=== PATIENT | female | born 1945 | race Caucasian/White ===

== ENCOUNTER 2024-04-20 23:25 | Observation (INO) | payer OTHER, SELFPAY ==
[2024-04-20 15:07] VITALS: BP 130/99
[2024-04-20 15:46] LABS: % Basophils 0.5 % (0-2); % Eosinophils 0.4 % (0-6); % Immature Granulocytes 0.6 % (0-0.5); % Lymphocytes 23.8 % (20.5-51.1); % Monocytes 12.1 % (1.7-9.3); % Neutrophils 62.6 % (42.2-75.2); Absolute Immature Granulocytes 0.1 10^3/uL (0-0.05); Absolute Lymphocytes 1.9 10^3/uL (1.2-3.4); Absolute Neutrophils 4.9 10^3/uL (1.4-6.5); Hematocrit 37.9 % (37.0-47.0); Hemoglobin 12.8 g/dL (12.0-16.0); Mean Corp Hgb Conc. 33.8 g/dL (33.0-37.0); Mean Corpuscular Hgb 31.6 pg (27.0-31.0); Mean Corpuscular Volume 93.6 fL (81.0-99.0); Mean Platelet Volume 9.2 fL (7.4-10.4); Nucleated Red Blood Cells % 0 %; Platelet Count 207 10^3/uL (130-400); Red Blood Cell Count 4.05 10^6/uL (4.20-5.40); Red Cell Dist. Width 12.8 % (11.5-14.5); White Blood Cell Count 7.8 10^3/uL (4.8-10.8)
[2024-04-20 16:04] LABS: ALT (SGPT) 23 U/L (0-35); AST (SGOT) 29 U/L (14-36); Albumin 4.5 g/dl (3.5-5.0); Alkaline Phosphatase 72 U/L (38-126); Blood Urea Nitrogen 31 mg/dl (7-17); Calcium 9.8 mg/dl (8.4-10.2); Carbon Dioxide 26 mmol/L (22-30); Chloride 96 mmol/L (98-107); Glucose 82 mg/dl (70-99); Potassium 4.5 mmol/L (3.5-5.1); Sodium 133 mmol/L (135-145); Total Bilirubin 0.4 mg/dl (0.2-1.3); Total Protein 7.2 g/dl (6.3-8.2); eGFR > 60.00
[2024-04-20 16:54] VITALS: BP 147/98
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
[2024-04-20 18:52] VITALS: BP 169/97
[2024-04-20 20:39] VITALS: BP 128/93
--- NOTE | 2024-04-20 22:10 | HPS.HSE ---
Addendum entered and electronically signed by Celia Valdes DO 04/21/24 00:13:
The patient is seen and examined. I have discussed the patient with Cynthia, and agree with history and physical, assessment and plan of care as per below. Per discussion with the ED provider, the patient has moderate dementia, lives alone, her
nephew is her POA, and presents after her patient advocate did a home check and noticed multiple pills missing from her blister pack-according to SW, she reports pt may have taken xtra 3 losartan, 3 crestor, 3 effexor, 3 metformin. Medical work-up
is unremarkable. She is medically cleared; POA states pt has been steadily declining, telepsych said pt does not have capacity to make decisions at this time, and admit is for case management and possible placement options vs consistent home nursing
care.
Crisis team consultation : 'Reason for Incapacitation:
The PATIENT IS NOT CAPABLE of understanding the nature of their illness. , The PATIENT DOES NOT UNDERSTAND the need for treatment and the consequences of neglecting or refusing treatment recommendations. , The PATIENT DOES NOT UNDERSTAND the risks
and benefits of treatment recommendations.
Capacity Evaluation Details: Patient does not have capacity'
VSS/AF
CV RRR, no m/r/g
Lungs CTA b/l
Neuro no focal deficits
Assessment and plan of care as per below:
Monitor telemetry observation overnight, EKG was normal, hemodynamically stable, AF
CM consultation to discuss placement options vs home w consistent home nursing care.
Original Note:
Family Physician
<DENNISE Kwan - Last Filed: 04/20/24 23:08>
-
Family Physician: PHYSICIAN PRIVATE
Chief Complaint
<DENNISE Kwan - Last Filed: 04/20/24 23:08>
-
accidental overdose
History of Present Illness
Patient is a 78-year-old female with past medical history significant for hypertension, hypothyroidism, NIDDM and depression who presented to [facility] for evaluation potential accidental overdose. Patient nurse advocate present in room and
helped with HPI as well as ROYCE and andrey Hopkins via phone call. Patient resides at home alone with home health aides for 4 hours multiple days a week, nurse advocate with intermittent visits during the week. Patient recently provided medications
via blister packs to assist in daily dosing. Nurse advocate noticed at visit today that patient had multiple medications with additional missing medications, patient adamantly denies taking extra medication. It was noted that extra losartan,
metformin and extra Effexor were all missing and multiple tablets of all of them. Patient denies any symptoms fevers, chills, cough, chest pain, shortness of breath, nausea, vomiting, constipation, diarrhea or urinary symptoms.
Medical History
<DENNISE Kwan - Last Filed: 04/20/24 23:08>
Past Medical History
Past Medical History: Reports Other
Additional Past Medical History:
hypertension
hypothyroidism
NIDDM
depression
Past Surgical History: Reports None
Social History
Unable to obtain full social history at this time due to: Dementia (cognitive decline, no dementia diagnosis at this time, Crisis assessment 'patient has short term cognitive impairment and does not seem to have capacity based on Komal’s
criteria.')
Living: Alone (home health aides for 4 hours a few days a week)
Employment: Retired
Allergies / Home Medications
Allergies reflects when Allergies were last updated in [facility].
Home Medications with original date entered in [facility]
Allergy/Medication List:
Allergies
Allergy/AdvReac Type Severity Reaction Status Date / Time
prochlorperazine Allergy Unknown Verified 04/20/24 15:00
[From Compazine]
Home Medications
fluticasone propionate 50 mcg/actuation nasal spray,suspension 1 spray intranasal DAILYPRN PRN congestion 04/20/24
levothyroxine 100 mcg tablet 100 mcg PO DAILY 04/20/24
losartan 50 mg tablet 50 mg PO DAILY 04/20/24
metformin 500 mg tablet 500 mg PO BID 04/20/24
rosuvastatin 10 mg tablet 10 mg PO DAILY 04/20/24
venlafaxine 150 mg capsule,extended release 24 hr 150 mg PO DAILY 04/20/24
<Celia Valdes DO - Last Filed: 04/20/24 23:54>
Family History
Family History: Not pertinent
Review of Systems
<DENNISE Kwan - Last Filed: 04/20/24 23:08>
-
Unable to obtain full review of systems at this time due to: Dementia (cognitive decline, no dementia diagnosis at this time, Crisis assessment 'patient has short term cognitive impairment and does not seem to have capacity based on Komal’s
criteria.')
History Source: Patient
Constitutional: Reports No Symptoms
EENT: Reports No Symptoms
Respiratory: Reports No Symptoms
Cardiac: Reports No Symptoms
Abdomen/GI: Reports No Symptoms
: Reports No Symptoms
Musculoskeletal: Reports No Symptoms
Skin: Reports No Symptoms
Neurological: Reports No Symptoms
Endocrine: Reports No Symptoms
Hematologic/Lymphatic: Reports No Symptoms
Psych: Reports No Symptoms
Physical Exam
<DENNISE Kwan - Last Filed: 04/20/24 23:08>
Vital Signs
Vital Signs
Temp Pulse Resp BP Pulse Ox
98.5 F 120 20 128/93 94
04/20/24 15:07 04/20/24 20:39 04/20/24 18:52 04/20/24 20:39 04/20/24 20:39
Physical Exam
General: Well Developed, Well Nourished and No Apparent Distress
HEENT: NormoCephalic, Moist mucous membranes and Atraumatic
Respiratory: Clear and Non Labored Respirations
Cardiac: S1/S2, Regular Rhythm and Murmur; No Rub or Gallop
Breast: Deferred by me
GI: Soft, Non Tender, Non Distended and Normal Bowel Sounds; No Organomegaly
Rectal: Deferred by Provider
Genito-urinary: Deferred by me
Musculoskeletal: No Clubbing, No Cyanosis and No Edema
Skin: No Rash
Neuro: Awake, Alert and Nonfocal/grossly intact
Psych: Agitated
Laboratory Results
<DENNISE Kwan - Last Filed: 04/20/24 23:08>
-
04/20/24 15:28
04/20/24 15:28
Laboratory Results
Total Bilirubin 0.4 mg/dl (0.2-1.3) 04/20/24 15:28
AST 29 U/L (14-36) 04/20/24 15:28
ALT 23 U/L (0-35) 04/20/24 15:28
Alkaline Phosphatase 72 U/L (38-126) 04/20/24 15:28
Data Reviewed
<DENNISE Kwan - Last Filed: 04/20/24 23:08>
-
Medical Tests (Nuc Med, Echo, EKG etc): Report Reviewed by me (EKG: NORMAL SINUS RHYTHM)
Lab Data: Labs Reviewed by me
Impression/Plan
<DENNISE Kwan - Last Filed: 04/20/24 23:08>
-
IMPRESSION/PLAN:
#accidental overdose
reported that multiple doses of blister packs for Effexor, metformin and losartan broken with no med today
- admit to med/sure for observation
- consult case management for discharge planning
#hypertension
- continue losartan
#hypothyroidism
- continue levothyroxine
#NIDDM
- continue metformin
#depression
- continue venlafaxine
Code Status: DNR
DVT Prophylaxis: Lovenox Sq
[2024-04-20 23:13] VITALS: BP 173/104
[2024-04-20 23:14] VITALS: BMI 24.6
[2024-04-20 23:26] LABS: Acetaminophen < 10 ug/ml (10-30); Salicylate < 1.0 mg/dl (2.0-20.0)
[2024-04-21] VITALS (11 sets, daily range): BP systolic 106–160; BP diastolic 62–106; BMI 24.8
[2024-04-21] MEDS: NSS 1000 IV (02:05)
[2024-04-21 02:18] LABS: Urine Albumin Negative (Neg - Trace); Urine Bilirubin Negative (Negative); Urine Character Clear (Clear); Urine Color Straw; Urine Glucose Negative (Negative); Urine Ketone Negative (Negative); Urine Leukocyte 1+ (Negative); Urine Nitrite Negative (Negative); Urine Occult Blood Negative (Negative); Urine Specific Gravity 1.005 (<1.030); Urine Urobilinogen Negative (Neg - 1+); Urine pH 6.5 (5.0-9.0)
[2024-04-21 02:27] LABS: Urine Urothelial Cell 21-25 /LPF (FEW)
[2024-04-21 02:28] LABS: Urine Bacteria Few (Negative); Urine Red Blood Cell 0-2 /HPF (0-2)
[2024-04-21 02:32] LABS: Amphetamines Negative (Negative); Barbiturates Negative (Negative); Benzodiazepines Negative (Negative); Buprenorphine Negative (Negative); Cocaine Negative (Negative); Marijuana Negative (Negative); Methadone Negative (Negative); Methamphetamines Negative (Negative); Opiates Negative (Negative); Phencyclidine Negative (Negative); Tricyclic Antidepressants Negative (Negative)
[2024-04-21 06:42] LABS: Blood Urea Nitrogen 22 mg/dl (7-17); Calcium 9.1 mg/dl (8.4-10.2); Carbon Dioxide 25 mmol/L (22-30); Chloride 101 mmol/L (98-107); Estimated Creatinine Clearance 51 ml/min; Glucose 92 mg/dl (70-99); Potassium 4.4 mmol/L (3.5-5.1); Sodium 135 mmol/L (135-145); eGFR > 60.00
[2024-04-21 07:06] LABS: TSH 1.93 uIU/ml (0.47-4.68)
[2024-04-21] MEDS: SYNTHROID 100 MCG PO (07:18)
--- NOTE | 2024-04-21 08:23 | W.PN.HOSP.TC ---
Today's Communication/Plan
-
d/c planning
Assessment / Plan
Assessment / Plan
#Accidental overdose
- reported that multiple doses of blister packs for Effexor, metformin and losartan broken with no med today
- Patient herself denies of overdosing on anything but crisis staff assessment shows that patient does not have decision making capacity
- admit to med/surge for observation
- consult case management for discharge planning
#Essential hypertension
- continue losartan
#hypothyroidism
- continue levothyroxine
#NIDDM
- continue metformin
#depression
- continue venlafaxine
Code Status: DNR
DVT Prophylaxis: Lovenox Sq
Patient is a flight risk in my opinion. Patient requesting to be discharged home.
Anticipated Discharge: Today
Subjective/Interval History
-
Date of Service: April 21, 2024
resting comfortably in bed
no issues overnight
Objective Data
-
Labs:
Laboratory Results
04/21/24
06:08
Sodium 135
Potassium 4.4
Chloride 101
Carbon Dioxide 25
BUN 22 H
Creatinine 0.7
Glucose 92
Calcium 9.1
Vital Signs:
Vital Signs
Temp Pulse Resp BP Pulse Ox
98.3 F 92 17 153/101 96
04/21/24 07:17 04/21/24 07:17 04/21/24 07:17 04/21/24 06:00 04/21/24 07:27
Review of Systems
-
Respiratory: Reports No Symptoms
Cardiac: Reports No Symptoms
Abdomen/GI: Reports No Symptoms
Physical Exam
-
General: Comfortable
HEENT: Negative Oxygen
Neuro: Awake, Alert and No Motor Deficits
[2024-04-21 09:14] LABS: Glucose - Point of Care 90 mg/dl (70-99)
[2024-04-21] MEDS: COZAAR 50 MG PO (10:24)
[2024-04-21] MEDS: GLUCOPHAGE 500 MG PO ×2 (10:24→21:32)
[2024-04-21] MEDS: EFFEXOR XR 150 MG PO (10:25)
[2024-04-21] MEDS: CRESTOR 10 MG PO (10:25)
--- NOTE | 2024-04-21 12:14 | CM ---
Addendum entered by Elysia Cervantes 04/21/24 14:40:
Received an email from Glenn/ROYCE Landaverde giving permission to, CM may speak with Mary Jo Fishman, patient's Advocate; and patient's Brother, Dina Landaverde
Addendum entered by Elysia Cervantes 04/21/24 13:27:
Per Attending, patient cannot go home without supervision and assistance in the home; patient is unable to make her own decisions
CM spoke with Glenn/Dina CRANE via phone #[phone] to discuss AL w/ memory unit; patient's brother plans to look for a facility
Glenn requested that CM Email Case Management contact information to [email or web address]
Original Note:
Initial assessment and Case Management Consult completed
RANGEL form explained; form signed @ 1210
NO Family Physician
Pharmacy verified: [facility] @ [address]
Lives alone in a rancher w/ basement; no steps to enter; does not go down to the basement; bed and bath on 1st floor; bath has tub w/ shower and grab bar
Reported she is independent with ambulation and ADLs; not currently working; drives
NO DME
NO SNF
Friend or Brother will transport home
Agreed to speak with [facility] Counselor to obtain outpatient therapy information
Plan: Discharge to home when stable
--- NOTE | 2024-04-21 14:01 | EDRN ---
Patient taken to room 412-1 in a wheelchair on the monitor by deburr technician.
--- NOTE | 2024-04-21 14:41 | PTCARENOTE ---
Receive dpt from ER via WC, accompanied by E PCT. Pt AAO x3, confused conversation at times; occ needs direction with activity. HOPKINS well, no c/o weakness/dizziness; able to transfer self to bed. VSS. On room air- pulse ox 96%, no SOB noted. Abd
soft, rounded, eating regular diet. Voided in BR upon arrival to room. Currently resting in bed, no c/o. Will continue to monitor.
--- NOTE | 2024-04-21 16:43 | PTCARENOTE ---
Pt resting comfortably since arrival on unit, no c/o. VSS. Will continue to monitor.
[2024-04-21] MEDS: LOVENOX 40 MG SC (17:58)
[2024-04-21 21:17] LABS: Glucose - Point of Care 166 mg/dl (70-99)
[2024-04-21] MEDS: MELATONIN PO (21:32)
[2024-04-21] MEDS: MELATONIN 5 MG PO (21:41)
[2024-04-22] VITALS (7 sets, daily range): BP systolic 109–138; BP diastolic 70–89
--- NOTE | 2024-04-22 06:05 | PTCARENOTE ---
Pt aaox3 able to make her needs known,denies pain or any other discomfort. Pt denies of any problems/discomfort.Pt denies of any suicidal thoughts or any other medications with her at this time.Plan of care continued.Call dee in reach.
[2024-04-22] MEDS: COZAAR 50 MG PO (08:57)
[2024-04-22] MEDS: EFFEXOR XR 150 MG PO (08:57)
[2024-04-22] MEDS: CRESTOR 10 MG PO (08:57)
[2024-04-22] MEDS: SYNTHROID 100 MCG PO (08:58)
[2024-04-22] MEDS: GLUCOPHAGE 500 MG PO ×2 (08:58→20:59)
--- NOTE | 2024-04-22 13:54 | W.PN.HOSP.TC ---
Today's Communication/Plan
-
medically stable for discharge
needs safe discharge plan
Assessment / Plan
Assessment / Plan
#Accidental overdose
- reported that multiple doses of blister packs for Effexor, metformin and losartan broken with no med today
- Patient herself denies of overdosing on anything but crisis staff assessment shows that patient does not have decision making capacity
- admit to med/surge for observation
- consult case management for discharge planning
#Essential hypertension
- continue losartan
#hypothyroidism
- continue levothyroxine
#NIDDM
- continue metformin
#depression
- continue venlafaxine
Code Status: DNR
DVT Prophylaxis: Lovenox Sq
Crisis staff / tele-psychiatrist evaluated patient and patient does not have decision-making capacity. Patient family in process of finding a facility for patient to go.
Anticipated Discharge: Today
Subjective/Interval History
-
Date of Service: April 22, 2024
no reported problems
Objective Data
-
Vital Signs:
Vital Signs
Temp Pulse Resp BP Pulse Ox
98.6 F 98 18 125/85 96
04/22/24 11:48 04/22/24 11:48 04/22/24 11:48 04/22/24 11:48 04/22/24 11:48
I&O
04/21/24 04/22/24 04/23/24
06:59 06:59 06:59
Intake Total 720 / 720
Balance 720 / 720
Review of Systems
-
Unable to obtain full review of systems at this time due to: Dementia
Physical Exam
-
General: Negative Appears in Distress
HEENT: Negative Oxygen
Neuro: Awake, Oriented and No Motor Deficits
Psych: Calm
[2024-04-22] MEDS: LOVENOX 40 MG SC (17:28)
[2024-04-22] MEDS: MELATONIN 5 MG PO (20:59)
[2024-04-22 21:02] LABS: Glucose - Point of Care 131 mg/dl (70-99)
[2024-04-23 03:45] VITALS: BP 137/79
[2024-04-23] MEDS: SYNTHROID 100 MCG PO (06:15)
[2024-04-23 08:12] LABS: Glucose - Point of Care 88 mg/dl (70-99)
[2024-04-23 08:33] VITALS: BP 136/78
[2024-04-23] MEDS: COZAAR 50 MG PO (09:00)
[2024-04-23] MEDS: CRESTOR 10 MG PO (09:00)
[2024-04-23] MEDS: EFFEXOR XR 150 MG PO (09:00)
[2024-04-23] MEDS: GLUCOPHAGE 500 MG PO ×2 (09:00→20:25)
[2024-04-23 11:54] VITALS: BP 131/74
[2024-04-23 13:17] LABS: Glucose - Point of Care 86 mg/dl (70-99)
--- NOTE | 2024-04-23 13:44 | W.PN.HOSP.TC ---
Today's Communication/Plan
-
needs placement
discharge planning
Assessment / Plan
Assessment / Plan
#Accidental overdose
- reported that multiple doses of blister packs for Effexor, metformin and losartan broken with no med today
- Patient herself denies of overdosing on anything but crisis staff assessment shows that patient does not have decision making capacity
- admit to med/surge for observation
- consult case management for discharge planning
#Essential hypertension
- continue losartan
#hypothyroidism
- continue levothyroxine
#NIDDM
- continue metformin
#depression
- continue venlafaxine
Code Status: DNR
DVT Prophylaxis: Lovenox Sq
Crisis staff / tele-psychiatrist evaluated patient and patient does not have decision-making capacity. Patient family in process of finding a facility for patient to go.
Anticipated Discharge: 24 - 48 hours
Subjective/Interval History
-
Date of Service: April 23, 2024
no reported problems
Objective Data
-
Vital Signs:
Vital Signs
Temp Pulse Resp BP Pulse Ox
97.9 F 77 18 131/74 99
04/23/24 11:54 04/23/24 11:54 04/23/24 11:54 04/23/24 11:54 04/23/24 11:54
I&O
04/22/24 04/23/24 04/24/24
06:59 06:59 06:59
Intake Total 720 / 720 720 / 720
Balance 720 / 720 720 / 720
Review of Systems
-
Unable to obtain full review of systems at this time due to: Dementia
Physical Exam
-
General: Negative Appears in Distress
HEENT: Negative Oxygen
Neuro: Awake and No Motor Deficits
Psych: Calm
[2024-04-23 15:52] VITALS: BP 143/91
--- NOTE | 2024-04-23 16:32 | CM ---
telephonic case manager reviewed patient's chart and spoke with Mary Jo Turcios [facility] who has been hired by family to assist with placement. Plan is for Mary Ellen Mercer from [address] [place] [address] in [place] to come to [facility] at 11:30 am on Thursday
and meet with patient.
Patient's nephew Sandeep is POA for patient
Patient's son, Sandeep Landaverde [phone] would like a meeting set up on Thursday afternoon with physician and telephonic case manager to tell patient that she is going to [address] [place] [address] facility, secure unit.
Per Frantk patient's brother he does not want patirnt to know she is leaving till Thursday.
Plan; Placement at [address] [place] [address].
[2024-04-23] MEDS: LOVENOX 40 MG SC (16:57)
[2024-04-23 17:50] LABS: Glucose - Point of Care 186 mg/dl (70-99)
[2024-04-23 19:27] VITALS: BP 148/90
[2024-04-23] MEDS: MELATONIN 5 MG PO (20:25)
[2024-04-23 21:33] LABS: Glucose - Point of Care 122 mg/dl (70-99)
[2024-04-23 23:48] VITALS: BP 119/87
[2024-04-24 03:21] VITALS: BP 130/86
[2024-04-24 06:00] VITALS: BMI 23.9
[2024-04-24] MEDS: SYNTHROID 100 MCG PO (06:38)
[2024-04-24 07:40] VITALS: BP 135/83
[2024-04-24 08:17] LABS: Glucose - Point of Care 84 mg/dl (70-99)
[2024-04-24] MEDS: EFFEXOR XR 150 MG PO (08:52)
[2024-04-24] MEDS: CRESTOR 10 MG PO (08:52)
[2024-04-24] MEDS: COZAAR 50 MG PO (08:52)
[2024-04-24] MEDS: GLUCOPHAGE 500 MG PO ×2 (08:53→20:31)
[2024-04-24 11:32] VITALS: BP 127/79
[2024-04-24 11:55] LABS: Glucose - Point of Care 95 mg/dl (70-99)
--- NOTE | 2024-04-24 12:53 | W.PN.HOSP.TC ---
Today's Communication/Plan
-
Continue discharge planning/placement discussion with POA
Assessment / Plan
Assessment / Plan
#Accidental overdose
- reported that multiple doses of blister packs for Effexor, metformin and losartan broken with no med today
- Patient herself denies of overdosing on anything but crisis staff assessment shows that patient does not have decision making capacity
- admit to med/surge for observation
- consult case management for discharge planning
#Essential hypertension
- continue losartan
#hypothyroidism
- continue levothyroxine
#NIDDM
- continue metformin
#depression
- continue venlafaxine
Code Status: DNR
DVT Prophylaxis: Lovenox Sq
Crisis staff / tele-psychiatrist evaluated patient and patient does not have decision-making capacity. Patient family in process of finding a facility for patient to go.
Anticipated Discharge: Within 24 hours
Subjective/Interval History
-
Date of Service: April 24, 2024
No reported medical issues
Patient apparently was walking out of room and was disoriented at time
Objective Data
-
Vital Signs:
Vital Signs
Temp Pulse Resp BP Pulse Ox
98.4 F 90 16 127/79 98
04/24/24 11:32 04/24/24 11:32 04/24/24 11:32 04/24/24 11:32 04/24/24 11:32
I&O
04/23/24 04/24/24 04/25/24
06:59 06:59 06:59
Intake Total 720 / 720 240 / 240 240 / 240
Balance 720 / 720 240 / 240 240 / 240
Review of Systems
-
Respiratory: Reports No Symptoms
Cardiac: Reports No Symptoms
Abdomen/GI: Reports No Symptoms
Physical Exam
-
General: Negative Appears in Distress
HEENT: Negative Oxygen
Neuro: Awake, Alert and No Motor Deficits
[2024-04-24 15:21] VITALS: BP 131/84
[2024-04-24 16:43] LABS: Glucose - Point of Care 96 mg/dl (70-99)
[2024-04-24] MEDS: LOVENOX 40 MG SC (16:47)
[2024-04-24 19:14] VITALS: BP 111/76
[2024-04-24] MEDS: MELATONIN 5 MG PO (20:31)
[2024-04-24 23:03] VITALS: BP 111/76
[2024-04-25 03:35] VITALS: BP 138/83
[2024-04-25] MEDS: SYNTHROID 100 MCG PO (04:54)
[2024-04-25 07:30] VITALS: BP 154/96
--- NOTE | 2024-04-25 09:13 | W.PN.HOSP.TC ---
Addendum entered and electronically signed by Kai Jameson MD 04/25/24 14:09:
family voices concerns about metformin and diarrhea and bowel incontinence-?overflow
Original Note:
Today's Communication/Plan
-
Psychiatry consult.
Assessment / Plan
Assessment / Plan
Physical exam:
General: Well Developed, Well Nourished and No Apparent Distress
HEENT: Normocephalic, Atraumatic and Moist Mucous Membranes
Respiratory: Clear to Auscultation; Negative Wheezes, Rales or Rhonchi
Cardiac: Regular Rhythm and S1/S2
GI: Soft, Nontender and Nondistended
Musculoskeletal: No Clubbing, No Cyanosis and No Edema
Neuro: Awake, Alert and Disoriented
Psych: Calm
A/P:
#Accidental overdose
- reported that multiple doses of blister packs for Effexor, metformin and losartan broken with no med today
- Patient herself denies of overdosing on anything but crisis staff assessment shows that patient does not have decision making capacity
- admit to med/surge for observation
- consult case management for discharge planning
-Psychiatry consult for medical decision capacity.
-PT OT eval.
-Discussed with medical case manager and family today and they are still trying to figure out what is going to be next step since patient does not agree to anything other than home.
#Essential hypertension
- continue losartan
#hypothyroidism
- continue levothyroxine
#NIDDM
- continue metformin
#depression
- continue venlafaxine
Code Status: DNR
DVT Prophylaxis: Lovenox Sq
Crisis staff / tele-psychiatrist evaluated patient and patient at the time did not have decision-making capacity but psychiatry from our hospital consulted for reevaluation. Patient family in process of finding a facility for patient to go.
Anticipated Discharge: 24 - 48 hours
Subjective/Interval History
-
Date of Service: April 25, 2024
Patient alert but disoriented. Afebrile.
Objective Data
-
Vital Signs:
Vital Signs
Temp Pulse Resp BP Pulse Ox
97.7 F 108 18 154/96 94
04/25/24 07:30 04/25/24 07:30 04/25/24 07:30 04/25/24 07:30 04/25/24 07:30
I&O
04/24/24 04/25/24 04/26/24
06:59 06:59 06:59
Intake Total 240 / 240 480 / 480
Balance 240 / 240 480 / 480
[2024-04-25 09:53] LABS: Hematocrit 35.9 % (37.0-47.0); Hemoglobin 11.8 g/dL (12.0-16.0); Mean Corp Hgb Conc. 32.9 g/dL (33.0-37.0); Mean Corpuscular Hgb 31.5 pg (27.0-31.0); Mean Corpuscular Volume 95.7 fL (81.0-99.0); Mean Platelet Volume 8.9 fL (7.4-10.4); Platelet Count 171 10^3/uL (130-400); Red Blood Cell Count 3.75 10^6/uL (4.20-5.40); Red Cell Dist. Width 13.1 % (11.5-14.5); White Blood Cell Count 5.8 10^3/uL (4.8-10.8)
[2024-04-25 10:06] LABS: Blood Urea Nitrogen 22 mg/dl (7-17); Calcium 9.1 mg/dl (8.4-10.2); Carbon Dioxide 27 mmol/L (22-30); Chloride 103 mmol/L (98-107); Estimated Creatinine Clearance 44 ml/min; Glucose 143 mg/dl (70-99); Potassium 4.3 mmol/L (3.5-5.1); Sodium 137 mmol/L (135-145); eGFR > 60.00
[2024-04-25] MEDS: GLUCOPHAGE 500 MG PO (10:13)
[2024-04-25] MEDS: COZAAR 50 MG PO (10:13)
[2024-04-25] MEDS: EFFEXOR XR 150 MG PO (10:13)
[2024-04-25] MEDS: CRESTOR 10 MG PO (10:14)
--- NOTE | 2024-04-25 10:50 | CM ---
Addendum entered by Deysi Judd RN 04/25/24 16:46:
Correction ROYCE Hopkins is in [place] . Brother Sandeep [phone] here visiting pt. Sandeep wants pt to go to [address] [place] [address] Living.Liaison from facility visited pt also.
Pt wishes to return to home.
Order for Psychiatry to evaluate placed by MD.
ON going discharge planning
Original Note:
Spoke with Mary Jo Turcios [facility] [phone] who has been hired by family to assist with placement.She requested MD see hpter before assisted living rep evaluates her.Encouraged Mary Jo to tell family to be with pt at time of Assisted
living eval. notified of request.
Mary Ellen Mercer from [address] [place] [address] in [place] to come to [facility] at 11:30 am on Thursday and meet with patient.
Patient's nephew Sandeep is POA for patient .
Requested PT OT order form .
As per Mary Jo pt independent at home but believes no longer safe at home. Family has not told pt their dc plan. Encouraged family to tell her the plan.
Family wants placement at [address] [place] [address].
PLAN Will depend on PT OT and eval from assisted living
[2024-04-25 11:11] VITALS: BP 140/95
--- NOTE | 2024-04-25 15:25 | PTOTSP ---
The patient is independent with ambulation, demonstrating normal, steady gait without a device. Patient's deficits are more so cognitive rather than physical. No PT needs identified at this time, will sign off.
[2024-04-25 15:30] VITALS: BP 136/88
[2024-04-25 16:45] LABS: Glucose - Point of Care 98 mg/dl (70-99)
--- NOTE | 2024-04-25 16:46 | W.PN.UPDATE ---
Update Note
Progress Note Update
Pt seen, resting in bed, alert, oriented- except for the date- stated the , calm, cooperative. Pt states she was taking medications at home, some from Rx bottles, some from her blister pack. Pt reports living alone, with beagle, has friends
and family in the vicinity. Pt shows no signs of confusion or agitation. Affect is appropriate, pt states her mood is good, denies any SI.
Imp: Unspecified depression, stable
R/o cognitive decline vs temporary disorientation due to medical factors
Rec: Pt appears to have the capacity to make decisions (short-term condition appears improved)
Psychiatry will sign off. Please reconsult for any new concerns
[2024-04-25] MEDS: NOVOLOG FLEXPEN-LOW RESISTANCE SC (16:49)
[2024-04-25] MEDS: LOVENOX 40 MG SC (17:15)
[2024-04-25 19:47] VITALS: BP 147/86
[2024-04-25] MEDS: MELATONIN 5 MG PO (20:27)
[2024-04-25 21:38] LABS: Glucose - Point of Care 95 mg/dl (70-99)
[2024-04-25 23:44] VITALS: BP 153/99
[2024-04-26 03:24] VITALS: BP 144/94
[2024-04-26] MEDS: SYNTHROID 100 MCG PO (05:03)
[2024-04-26] MEDS: EFFEXOR XR 150 MG PO (08:04)
[2024-04-26] MEDS: COZAAR 50 MG PO (08:04)
[2024-04-26] MEDS: CRESTOR 10 MG PO (08:04)
[2024-04-26] MEDS: NOVOLOG FLEXPEN-LOW RESISTANCE SC ×3 (08:04→16:54)
[2024-04-26] MEDS: FLUSH (NSS) 1 FLUSH IV (08:05)
[2024-04-26 08:07] LABS: Glucose - Point of Care 87 mg/dl (70-99)
[2024-04-26 08:15] VITALS: BP 150/91
--- NOTE | 2024-04-26 08:23 | W.PN.HOSP.TC ---
Today's Communication/Plan
-
Discharge planning in progress
Assessment / Plan
Assessment / Plan
Physical exam:
General: Well Developed, Well Nourished and No Apparent Distress
HEENT: Normocephalic, Atraumatic and Moist Mucous Membranes
Respiratory: Clear to Auscultation; Negative Wheezes, Rales or Rhonchi
Cardiac: Regular Rhythm and S1/S2
GI: Soft, Nontender and Nondistended
Musculoskeletal: No Clubbing, No Cyanosis and No Edema
Neuro: Awake, Alert and oriented and able to answer questions appropriately, no neurological deficits.
Psych: Calm
A/P:
#Accidental overdose
- reported that multiple doses of blister packs for Effexor, metformin and losartan broken with no med
- Patient herself denies of overdosing on anything but crisis staff assessment shows that patient does not have decision making capacity--> follow-up and formal psychiatry consultation deemed her that she is able to make her own medical decisions.
- admit to med/surge for observation
- consult case management for discharge planning
-Psychiatry consult for medical decision capacity and please see their note.
-PT OT eval.
-Discussed with insurance case manager and family today and they are still trying to figure out what is going to be next step since patient does not agree to anything other than home.
#Essential hypertension
- continue losartan
#hypothyroidism
- continue levothyroxine
#NIDDM
- continue metformin
#depression
- continue venlafaxine
Code Status: DNR
DVT Prophylaxis: Lovenox Sq
Anticipated Discharge: Within 24 hours
Subjective/Interval History
-
Date of Service: April 26, 2024
No new complaints today.
Objective Data
-
Vital Signs:
Vital Signs
Temp Pulse Resp BP Pulse Ox
97.9 F 87 18 150/91 98
04/26/24 08:15 04/26/24 08:15 04/26/24 08:15 04/26/24 08:15 04/26/24 08:15
I&O
04/25/24 04/26/24 04/27/24
06:59 06:59 06:59
Intake Total 480 / 480 720 / 720
Balance 480 / 480 720 / 720
[2024-04-26 10:18] LABS: Glycohemoglobin (HgbA1c) 5.8 % (4.0-5.6)
[2024-04-26 11:58] VITALS: BP 121/75
[2024-04-26 12:27] LABS: Glucose - Point of Care 108 mg/dl (70-99)
--- NOTE | 2024-04-26 14:54 | VNURNOTE ---
Home Health Liaison met with patient at bedside to discuss [facility] nurse/therapy, visits, schedule and homebound status. Friend Cindy was present as well. Patient is agreeable and understands that visits at home will be 2-3 x per week to assess and
teach medical management. [facility] brochure provided with contact information. Patient is aware that [facility] will contact them for start of care in 1-2 days after discharge from .
[facility] referral completed in [facility].
[2024-04-26 16:51] LABS: Glucose - Point of Care 100 mg/dl (70-99)
[2024-04-26 16:57] VITALS: BP 124/77
--- NOTE | 2024-04-26 17:02 | PTCARENOTE ---
Pt AAO x3, forgetful at times. HOPKINS well, OOB in room/yoon, lina well. VSS. Telemetry:NSR. On room air- pulse ox 95%, no SOB noted. Abd soft, lina regular diet. Voiding in BR without difficulty. Resting in bed at present, no c/o. Will continue
to monitor.
[2024-04-26] MEDS: LOVENOX 40 MG SC (17:05)
--- NOTE | 2024-04-26 17:17 | CM ---
Spoke with pt in room while she was visiting with her friend Cindy.
Psychiatry evaluated pt and said she had capacity.
Reviewed with pt that her brother Sandeep would lie her to go to assisted living. Pt said she wants to go home. She did consent to [facility] aware of referral.
Asked pt who will drive her home she said her brother.
Offered career development specialist list- pt declined need.
[facility]An [facility]
[2024-04-26 21:53] LABS: Glucose - Point of Care 145 mg/dl (70-99)
[2024-04-26] MEDS: MELATONIN 5 MG PO (22:08)
[2024-04-26 23:06] VITALS: BP 144/98
[2024-04-27] MEDS: SYNTHROID 100 MCG PO (05:08)
[2024-04-27 07:35] VITALS: BP 149/95
[2024-04-27 07:43] LABS: Glucose - Point of Care 116 mg/dl (70-99)
[2024-04-27] MEDS: COZAAR 50 MG PO (08:24)
[2024-04-27] MEDS: CRESTOR 10 MG PO (08:24)
[2024-04-27] MEDS: EFFEXOR XR 150 MG PO (08:24)
[2024-04-27] MEDS: NOVOLOG FLEXPEN-LOW RESISTANCE SC ×2 (08:54→12:07)
--- NOTE | 2024-04-27 09:45 | W.PN.HOSP.TC ---
Today's Communication/Plan
-
Discharge planning in progress
Assessment / Plan
Assessment / Plan
Physical exam:
General: Well Developed, Well Nourished and No Apparent Distress
HEENT: Normocephalic, Atraumatic and Moist Mucous Membranes
Respiratory: Clear to Auscultation; Negative Wheezes, Rales or Rhonchi
Cardiac: Regular Rhythm and S1/S2
GI: Soft, Nontender and Nondistended
Musculoskeletal: No Clubbing, No Cyanosis and No Edema
Neuro: Awake, Alert and oriented and able to answer questions appropriately, no neurological deficits.
Psych: Calm
A/P:
#Accidental overdose
- reported that multiple doses of blister packs for Effexor, metformin and losartan broken with no med
- Patient herself denies of overdosing on anything but crisis staff assessment shows that patient does not have decision making capacity--> follow-up and formal psychiatry consultation deemed her that she is able to make her own medical decisions.
- admit to med/surge for observation
- consult case management for discharge planning
-Psychiatry consulted for medical decision capacity and please see their note.
-PT OT eval.
-Discussed with outpatient case manager and family they before yesterday and they are still trying to figure out what is going to be next step since patient does not agree to anything other than home. I will reach out to family again.
#Essential hypertension
- continue losartan
#hypothyroidism
- continue levothyroxine
#NIDDM
- continue metformin
#depression
- continue venlafaxine
Code Status: DNR
DVT Prophylaxis: Lovenox Sq
Anticipated Discharge: 24 - 48 hours
Subjective/Interval History
-
Date of Service: April 27, 2024
No new complaints. Afebrile
Objective Data
-
Vital Signs:
Vital Signs
Temp Pulse Resp BP Pulse Ox
97.6 F 86 18 149/95 96
04/27/24 07:35 04/27/24 07:35 04/27/24 07:35 04/27/24 07:35 04/27/24 07:35
I&O
04/26/24 04/27/24 04/28/24
06:59 06:59 06:59
Intake Total 720 / 720 1380 / 1380
Balance 720 / 720 1380 / 1380
--- NOTE | 2024-04-27 10:55 | CM ---
Addendum entered by Deysi Judd, RN 04/27/24 15:32:
Spoke with Esthela from [facility] [phone]. Reviewed case.Faxed clinical from this hospital stay to [phone]. Informed Esthela anticipate dc in 48 hours.
Met with Sandeep and Mary Jo senior hris analyst in [facility] [place] reviewed that Dr Joe psychiatrist on 04/25/24 said pt has capacity and she wants discharge to home with [facility].Sandeep reviewed why he believes she should be dc to assisted living. Sandeep
requested Risk management number which was given.
director Quentin Elizalde aware of above.
Original Note:
Psychiatry evaluated pt and said she had capacity.
[facility] trying to set up VN Can not locate PCP.
Spoke with Tomasz from [facility] [phone] information given about her stay here at including her capacity eval in ED and by Dr Blood psychiatry 04/25/24 Pt wants to go home VS brother wants her to go to assisted living.
Asked pt who will drive her home she said her brother.
Offered care partner list- pt declined need.
PLAN Home with [facility]
--- NOTE | 2024-04-27 11:34 | VNURNOTE ---
Chart reviewed again. Unable to locate a PCP. Was informed Jean Paul Edgar is a Dr at [facility]. [facility] met with [facility] again at bedside. Brother Sandeep present. Patient recalled last PCP was Dr Esa Abarca. She and brother
think last visit was within past year. Provided info on Residency clinic if patient looking for new PCP or not current nino/Tevin. Informed pt would need to be seen in clinic prior to [facility] starting services. Patient did not seem 100% agreeable to
[facility] but insisting on going home. Brother Sandeep not in agreement with patient going home. At end of visit, DYLAN Camargo came to bedside. They requested to speak w/CM. Deysi notified.
[2024-04-27 11:41] LABS: Glucose - Point of Care 132 mg/dl (70-99)
[2024-04-27 15:14] VITALS: BP 136/85
[2024-04-27 16:39] LABS: Glucose - Point of Care 171 mg/dl (70-99)
[2024-04-27] MEDS: NOVOLOG FLEXPEN-LOW RESISTANCE 1 UNITS SC (16:57)
[2024-04-27] MEDS: LOVENOX 40 MG SC (16:59)
[2024-04-27 21:25] LABS: Glucose - Point of Care 164 mg/dl (70-99)
[2024-04-27] MEDS: MELATONIN 5 MG PO (21:51)
[2024-04-27 23:20] VITALS: BP 114/70
[2024-04-28] MEDS: SYNTHROID 100 MCG PO (06:01)
[2024-04-28 08:23] LABS: Glucose - Point of Care 87 mg/dl (70-99)
[2024-04-28 08:40] VITALS: BP 147/95
--- NOTE | 2024-04-28 08:54 | W.PN.HOSP.TC ---
Addendum entered and electronically signed by Kai Jameson MD 04/28/24 15:27:
antiemetics as needed and test norovirus
Original Note:
Today's Communication/Plan
-
Psychiatry reconsulted
Assessment / Plan
Assessment / Plan
Physical exam:
General: Well Developed, Well Nourished and No Apparent Distress
HEENT: Normocephalic, Atraumatic and Moist Mucous Membranes
Respiratory: Clear to Auscultation; Negative Wheezes, Rales or Rhonchi
Cardiac: Regular Rhythm and S1/S2
GI: Soft, Nontender and Nondistended
Musculoskeletal: No Clubbing, No Cyanosis and No Edema
Neuro: Awake, Alert and oriented and able to answer questions appropriately, no neurological deficits.
Psych: Calm
A/P:
#Accidental overdose
- reported that multiple doses of blister packs for Effexor, metformin and losartan broken with no med
- Patient herself denies of overdosing on anything but crisis staff assessment shows that patient did not have decision making capacity--> follow-up and formal psychiatry consultation deemed her that she is able to make her own medical decisions.
Family request reevaluation and another psychiatry will reevaluate her today on 04/28 for medical decision capacity.
- admit to med/surge for observation
- consult case management for discharge planning
-Psychiatry consulted for medical decision capacity and please see their note.
-PT OT eval.
-Discussed with binder caser and family they before yesterday and they are still trying to figure out what is going to be next step since patient does not agree to anything other than home. I will reach out to family again once we hear from
psychiatry for formal evaluation.
#Suspect gastroenteritis
Supportive care and reevaluate
#Essential hypertension
- continue losartan
#hypothyroidism
- continue levothyroxine
#NIDDM
- holding metformin due to ?gi side effects
#depression
- continue venlafaxine
Code Status: DNR
DVT Prophylaxis: Lovenox Sq
Anticipated Discharge: 24 - 48 hours
Subjective/Interval History
-
Date of Service: April 28, 2024
Patient does not feel well today with a little bit of abdominal discomfort and nausea. Alert. Afebrile
Objective Data
-
Vital Signs:
Vital Signs
Temp Pulse Resp BP Pulse Ox
98.5 F 97 18 147/95 97
04/28/24 08:40 04/28/24 08:40 04/28/24 08:40 04/28/24 08:40 04/28/24 08:40
I&O
04/27/24 04/28/24 04/29/24
06:59 06:59 06:59
Intake Total 1380 / 1380 720 / 720
Balance 1380 / 1380 720 / 720
[2024-04-28] MEDS: CRESTOR 10 MG PO (08:58)
[2024-04-28] MEDS: EFFEXOR XR 150 MG PO (08:58)
[2024-04-28] MEDS: NOVOLOG FLEXPEN-LOW RESISTANCE SC ×3 (08:58→17:05)
[2024-04-28] MEDS: COZAAR 50 MG PO (08:58)
[2024-04-28 12:25] LABS: Glucose - Point of Care 81 mg/dl (70-99)
--- NOTE | 2024-04-28 13:58 | CM ---
Addendum entered by Cece Tamayo 04/28/24 16:45:
Await f/u psychiatry eval.
Plan: AL vs home
Addendum entered by Cece Tamayo 04/28/24 14:21:
Spoke to Mary Jo from [facility], explained ambulance transport may or may not be covered, need to wait for psychiatry to see patient. Will follow up in the am.
Faxed medication list to Lauren at [address] [place] [address]- fax# [phone]. Will work on transportation and POLST form tomorrow.
Patients brothhesham Dyson phone number [phone].
Original Note:
Spoke with Lauren Bringme Counselor from [address] [place] [address], she is requesting medication list and POLST form be faxed over.
Psychiatry to see patient today, will address POLST for after.
Per Lauren, family would like assistance with transportation to [place] tomorrow. CM explained patient will not qualify for ambulance transport and WC van may not be appropriate.
Lauren will update brother and have him call with questions.
Left VM for Mary Jo Fishman from [facility] [phone], await TCB.
[2024-04-28] MEDS: ZOFRAN 4 MG IV (15:26)
--- NOTE | 2024-04-28 15:42 | CON.MD ---
Addendum entered and electronically signed by Musa Fuentes MD 04/28/24 16:02:
continue effexor as is. consider cat scan or mri scan of the brain.
Original Note:
Consultation - Medical
-
patient seen chart reviewed. spoke with nursing and with ms kizzy myers re this consult. the patient is a 78 year old woman and this consult is being sought re ? of capacity to make decisions on her own behalf. at issue is whether the patient will
return home. the patient does NOT wish to go to a facility and her brother and nephew (the latter is her poa) are insisting she be discharged to a nursing facility and she is adamant that this is NOT what she wants. she was admitted after allegedly
making an unintentional mistake in taking her medications. she took three extra doses of losartan crestor effexor metformin as evidenced by her pill containers. she was not trying to harm self or treat any symptomatology. she has a hx of
depression. she was treated for years with effexor 150 mg daily. she is not sure how much it helped her in that time . she was not feeling well today and admitted she was very upset that her family was trying to send her to a nursing facility and
she is adamantly opposed to it. in addition to stress of this issue or perhaps bc of it she was feeling rather nauseated today expressed when we were talking that she felt like throwing up. nursing tells me that gi sx have been occurring throughout
the day today. the patient is NOT suicidal. she has not been sleeping well bc worry over where she will live. appetite not good today bc of gi sx. there is nothing to suggest psychosis. 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
'moderate dementia' but i don't see any testing at all in the chart. 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
today as well)
past psych hx patient has never been hospitalized psychiatrically. she had some therapy over the years which was somewhat helpful. see above re effexor which is current antidep which she has taken for many years
medical hx while the patient has been dx as having dementia i see no testing in the chart nor is there imaging eg cat scan or mri scan. patient has hx hypothyroid niddm (a1c is 5.8) hgb 11.8 htn hld tsh and t4 are normal ecg w qtc 461
chemistries okay urine culture negative
family hx non contributory
substance abuse denied
social resides on her own. patient raised four kids as a single mom. she ran a daycare for 23 years. she had no $ to do so and was financed by two friends who had pranav in her she has a few hobbies 'shopping'. she has friends she sees for lunch
mse alert ox3 cooperative and pleasant. she did appear to be feeling ill today but persevered in talking to me. speech and thought process appear normal. no psychosis mood is dysphoric affect ok no si average intelligence insight judgment seem
fair. i did not do the moca bc patient did not appear to be feeling well. she agreed to try to do it in the am
dx unspecified depression r/o cognitive decline
plan will do moca tomorrow. will not comment on capacity today as patient made a great effort to talk to me but clearly was not feeling well. have ordered OT consult to assess ability to do adl's etc. check b12 folate and vit d. consider whether
increase in effexor might ameliorate sx which appear to be secondary to depression but may not be.
[2024-04-28 15:48] VITALS: BP 153/98
[2024-04-28 17:01] LABS: Glucose - Point of Care 121 mg/dl (70-99)
[2024-04-28] MEDS: LOVENOX 40 MG SC (17:30)
[2024-04-28 21:39] LABS: Glucose - Point of Care 100 mg/dl (70-99)
[2024-04-28] MEDS: MELATONIN 5 MG PO (22:04)
[2024-04-28 23:00] VITALS: BP 129/84
[2024-04-29] MEDS: SYNTHROID 100 MCG PO (05:13)
[2024-04-29 08:22] LABS: Glucose - Point of Care 88 mg/dl (70-99)
[2024-04-29 08:32] VITALS: BP 142/68
[2024-04-29] MEDS: NOVOLOG FLEXPEN-LOW RESISTANCE SC ×3 (08:38→17:07)
[2024-04-29] MEDS: COZAAR 50 MG PO (08:45)
[2024-04-29] MEDS: EFFEXOR XR 150 MG PO (08:45)
[2024-04-29] MEDS: CRESTOR 10 MG PO (08:45)
[2024-04-29 08:51] LABS: Vitamin D, 25-OH*** 32.4 ng/mL (30-80)
[2024-04-29 09:40] LABS: Folate 11.4 ng/ml (2.76-20); Vitamin B12 365 pg/ml (239-931)
--- NOTE | 2024-04-29 10:07 | W.PN.HOSP.TC ---
Addendum entered and electronically signed by Kai Jameson MD 04/29/24 20:10:
Discussed with nephew, marciaекатерина over the form. ROSALINA filled out with POA and mentioned there is one similar form given to hospital earlier.
Original Note:
Today's Communication/Plan
-
Psychiatry reevaluation
Assessment / Plan
Assessment / Plan
Physical exam:
General: Well Developed, Well Nourished and No Apparent Distress
HEENT: Normocephalic, Atraumatic and Moist Mucous Membranes
Respiratory: Clear to Auscultation; Negative Wheezes, Rales or Rhonchi
Cardiac: Regular Rhythm and S1/S2
GI: Soft, Nontender and Nondistended
Musculoskeletal: No Clubbing, No Cyanosis and No Edema
Neuro: Awake, Alert and oriented and able to answer questions appropriately, no neurological deficits.
Psych: Calm
A/P:
#Accidental overdose
- reported that multiple doses of blister packs for Effexor, metformin and losartan broken with no med
- Patient herself denies of overdosing on anything but crisis staff assessment shows that patient did not have decision making capacity--> follow-up and formal psychiatry consultation deemed her that she is able to make her own medical decisions.
Family request reevaluation and another psychiatry will reevaluate her today on 04/28 for medical decision capacity.
- admit to med/surge for observation
- consult case management for discharge planning
-Psychiatry consulted for medical decision capacity and please see their note.
-PT OT eval.
-Discussed with upper caser and family they before yesterday and they are still trying to figure out what is going to be next step since patient does not agree to anything other than home. I will reach out to family again once we hear from
psychiatry for formal evaluation.
# Nausea and vomiting probably stress related (initially suspected gastroenteritis)
Supportive care and reevaluate
#Cognitive deficits
B12 365, vitamin D 32.4, folate 11.4, TSH 1.93
OT eval
Psychiatry following
Might need Mini-Mental Status evaluation
#Essential hypertension
- continue losartan
#hypothyroidism
- continue levothyroxine
#NIDDM
- holding metformin due to ?gi side effects
#depression
- continue venlafaxine
Code Status: DNR
DVT Prophylaxis: Lovenox Sq
Anticipated Discharge: 24 - 48 hours
Subjective/Interval History
-
Date of Service: April 29, 2024
Patient feels better today. No nausea or vomiting. Less anxious
Objective Data
-
Vital Signs:
Vital Signs
Temp Pulse Resp BP Pulse Ox
98.3 F 71 18 142/68 97
04/29/24 08:32 04/29/24 08:32 04/29/24 08:32 04/29/24 08:45 04/29/24 08:40
I&O
04/28/24 04/29/24 04/30/24
06:59 06:59 06:59
Intake Total 720 / 720 960 / 960
Balance 720 / 720 960 / 960
[2024-04-29 12:14] LABS: Glucose - Point of Care 131 mg/dl (70-99)
--- NOTE | 2024-04-29 15:03 | CM ---
Addendum entered by Cece Tamayo 04/29/24 16:27:
Psychiatry note reviewed. POLST form to be filled out by MD.
Spoke with Lauren at [address] [place] [address] and they can accept patient tomorrow after all paperwork received.
Please Contact Opal Bui at [address] [place] [address] at [phone] to discuss admission and times.
If Opal is unavailable, call Lauren at [phone] [place] [address] fax # [phone]
TC to Mary Jo from [employer] [facility] [phone]
Mary Jo aware of possible d/c to [address] [place] [address] tomorrow.
Mary Jo would like for MD and family to discuss with patient the need for memory care at the same time.
CM explained that may not be possible but will leave a message with the weekend CM.
Mary Jo will update family.
Patient will need ambulance transport to [address] [place] [address].
Original Note:
Patient seen bedside eating lunch.
Patient ambulating in room.
Texted with [facility] (home ill today) and updated we are awaiting f/u psychiatry eval (patient did not feel well yesterday).
Await psychiatry input.
Per Brother Sandeep, [facility] cannot accept after 3 pm today, but could possibly accept tomorrow after they receive the POLST form.
MD to complete POLST form on the front of the chart.
[address] [place] [address] has received the current medication list faxed yesterday.
Plan: Assisted Living once arranged.
[2024-04-29 15:45] VITALS: BP 138/80
--- NOTE | 2024-04-29 15:45 | W.PN.UPDATE ---
Addendum entered and electronically signed by Musa Fuentes MD 04/29/24 15:55:
moca from today placed in paper chart.
Original Note:
Update Note
Progress Note Update
patient seen chart reviewed. patient continues to be opposed to going to any type of nursing facility. nursing tells me today that she does need help w adl's patient had soiled herself yesterday and was reluctant to have nursing help her clean
herself up and change. today i did note feces as i was leaving the bedside and informed nursing. patient was agreeable to participate in completing the moca and scored 20 out of 30 points indicating impairment. some things she did quite well eg
drawing a clock, naming, digit span, repeating sentences, serial sevens but she could not recall any of five objects, and could not tell me she was in in young. she does seem to have little understanding of why she is here and her family
and staff's concerns about her. given these factors even though physical therapy finds her to be pretty functional in that regard, i would say she does not have capacity at this time for medical decision making given her impairment in memory and
some aspects of cognition. she really does demonstrate need for assistance primarily reminders and encouragement to go what one needs to do to remain healthy and safe in the course of a day. psych will sign off.
[2024-04-29 16:38] LABS: Glucose - Point of Care 110 mg/dl (70-99)
[2024-04-29 16:48] LABS: % Basophils 0.2 % (0-2); % Eosinophils 0.4 % (0-6); % Immature Granulocytes 0.4 % (0-0.5); % Lymphocytes 21.4 % (20.5-51.1); % Monocytes 17.2 % (1.7-9.3); % Neutrophils 60.4 % (42.2-75.2); Absolute Monocytes 0.8 10^3/uL (0.1-0.6); Absolute Neutrophils 2.7 10^3/uL (1.4-6.5); Hematocrit 32.6 % (37.0-47.0); Hemoglobin 11.1 g/dL (12.0-16.0); Mean Corpuscular Hgb 31.9 pg (27.0-31.0); Mean Corpuscular Volume 93.7 fL (81.0-99.0); Nucleated Red Blood Cells % 0 %; Platelet Count 140 10^3/uL (130-400); Red Blood Cell Count 3.48 10^6/uL (4.20-5.40); Red Cell Dist. Width 13.2 % (11.5-14.5); White Blood Cell Count 4.5 10^3/uL (4.8-10.8)
[2024-04-29] MEDS: LOVENOX 40 MG SC (17:07)
[2024-04-29 17:10] LABS: Blood Urea Nitrogen 30 mg/dl (7-17); Calcium 8.6 mg/dl (8.4-10.2); Carbon Dioxide 23 mmol/L (22-30); Chloride 101 mmol/L (98-107); Estimated Creatinine Clearance 51 ml/min; Glucose 112 mg/dl (70-99); Potassium 4.4 mmol/L (3.5-5.1); Sodium 134 mmol/L (135-145); eGFR > 60.00
[2024-04-29] MEDS: MELATONIN 5 MG PO (20:40)
[2024-04-29 23:28] VITALS: BP 140/79
[2024-04-30] MEDS: SYNTHROID 100 MCG PO (05:05)
[2024-04-30 07:35] VITALS: BP 170/97
[2024-04-30 07:38] LABS: Glucose - Point of Care 97 mg/dl (70-99)
[2024-04-30 08:20] VITALS: BP 150/90
[2024-04-30] MEDS: NOVOLOG FLEXPEN-LOW RESISTANCE SC ×2 (08:20→13:01)
[2024-04-30] MEDS: EFFEXOR XR 150 MG PO (08:21)
[2024-04-30] MEDS: COZAAR 50 MG PO (08:21)
[2024-04-30] MEDS: CRESTOR 10 MG PO (08:21)
--- NOTE | 2024-04-30 09:08 | W.PN.HOSP.TC ---
Today's Communication/Plan
-
Discharge planning today
Assessment / Plan
Assessment / Plan
Physical exam:
General: Well Developed, Well Nourished and No Apparent Distress
HEENT: Normocephalic, Atraumatic and Moist Mucous Membranes
Respiratory: Clear to Auscultation; Negative Wheezes, Rales or Rhonchi
Cardiac: Regular Rhythm and S1/S2
GI: Soft, Nontender and Nondistended
Musculoskeletal: No Clubbing, No Cyanosis and No Edema
Neuro: Awake, Alert and oriented and able to answer some questions appropriately but others not so much and she does have significant cognitive deficits; no neurological deficits otherwise.
Psych: Anxious and upset today
A/P:
#Accidental overdose
- reported that multiple doses of blister packs for Effexor, metformin and losartan broken with no med
- Patient herself denies of overdosing on anything but crisis staff assessment shows that patient did not have decision making capacity--> follow-up and psychiatry consultation deemed her that she was able to make her own medical decisions but
another psychiatry reevaluated her and deemed that she does lack medical decision capacity. Two psychiatrist agree that she does not have medical decisions and I certainly agree with those 2 psychiatrists on my own evaluation. Discussed with
nephew who is POA. Discussed also with her brother. Filled out POLST form. Sent prescriptions to pharmacy of choice. She is medically ready to be discharged today.
-Discussed with family and patient at bedside today on 04/30- the issue of lack of medical decision capacity from psychiatry evaluation and discharge disposition today and she is upset but ultimately agreed.
-Will give one-time dose of Ativan given circumstances.
-Patient cleared for discharge today to a safer place for her.
# Nausea and vomiting probably stress related (initially suspected gastroenteritis)
Supportive care and reevaluate
#Cognitive deficits
B12 365, vitamin D 32.4, folate 11.4, TSH 1.93
OT eval
Psychiatry following
Might need Mini-Mental Status evaluation
#Essential hypertension
- continue losartan
#hypothyroidism
- continue levothyroxine
#NIDDM
- holding metformin due to ?gi side effects
-Start glyburide 2.5 mg p.o. daily upon discharge
#depression
- continue venlafaxine
Code Status: DNR
DVT Prophylaxis: Lovenox Sq
Anticipated Discharge: Today
Subjective/Interval History
-
Date of Service: April 30, 2024
Patient with no new complaints. Discussed with patient about the issue of lack of medical decision capacity from psychiatry evaluation and discharge disposition today and she is upset but ultimately agreed.
Objective Data
-
Vital Signs:
Vital Signs
Temp Pulse Resp BP Pulse Ox
97.4 F 95 18 170/97 97
04/30/24 07:35 04/30/24 08:21 04/30/24 07:35 04/30/24 08:21 04/30/24 07:35
I&O
04/29/24 04/30/24 05/01/24
06:59 06:59 06:59
Intake Total 960 / 960 960 / 960
Balance 960 / 960 960 / 960
--- NOTE | 2024-04-30 09:47 | CM ---
Addendum entered by Davina Jack 04/30/24 15:17:
POA asked for CM to send scripts to [facility] [place], original pharmacy was closed. physician updated with request await response.
Addendum entered by Davina Jack 04/30/24 12:30:
medications to be reviewed with Sylvie; patient has some at home in blister packs. POA provided pharmacy of [facility] if needed. CM will add to chart.
Addendum entered by Davina Jack 04/30/24 09:56:
family changed time to 11am. CM sent tt to physician. Called for ambulance scheduled for 1:30pm tentatively with jim at acute care.
Original Note:
CM spoke with Mary Jo from [facility] and family to be present in room and requesting physician at 10:30am. CM sent TT to physician and completed ambulance transportation forms. CM will continue to follow for discharge planning needs.
Plan; transfer to [address] [place] [address] today requesting arrival before 2pm. requesting ambulance for 1pm
Please Contact Opal Bui at [address] [place] [address] at [phone] to discuss admission and times.
If Opal is unavailable, call Lauren at [phone] [place] [address] fax # [phone]
--- NOTE | 2024-04-30 10:57 | W.DCSUMMARY ---
Discharge Summary
Discharge Data
Date of Admission: 04/20/24
Date of Discharge: 04/30/24
-
Pending Results: No
Hospital Course
Patient 78 years old female with history of hypertension, hyperlipidemia, hypothyroidism, diabetes mellitus, underlying cognitive deficit, who came into the hospital after possible accidental overdose of medications. Patient did well from medical
standpoint. Psychiatry evaluated the patient and after deliberation and multiple evaluations including by different providers, patient was deemed not capable of making decisions. Family arranged for safer place for her to be discharged to.
Patient was sent to [address] where POA and rest of family agree. document control manager requested to send all her outpatient prescriptions to a different pharmacy and I did. No other events were noticed throughout this hospital course.
Discharge duration: 35 minutes
Discharge Plan
-
Patient Disposition: Assisted Living
Discharge Diagnosis/Procedures: Accidental overdose of medications. Cognitive deficits. Hypertension. Diabetes mellitus.
Diet: Diabetic, Carb Controlled
Activity: As tolerated
Driving Restrictions: No driving
Blood Work: Please PCP to order CBC, BMP within 1 week
Referrals:
Primary care, provider [Other] (See less than 1 week)
Musa Fuentes MD [Active] - in four to six weeks
Prescriptions:
New
glyburide 2.5 mg tablet
2.5 mg PO DAILY Qty: 14 0RF
Continued
losartan 50 mg Tablet
50 mg PO DAILY Qty: 14 0RF
venlafaxine 150 mg Capsule,Extended Release 24hr
150 mg PO DAILY Qty: 14 0RF
fluticasone propionate 50 mcg/actuation [place],Suspension
1 spray INTRANASAL DAILYPRN PRN (Reason: congestion) Qty: 1 0RF
rosuvastatin 10 mg Tablet
10 mg PO DAILY Qty: 14 0RF
levothyroxine 100 mcg Tablet
100 mcg PO DAILY Qty: 14 0RF
Discontinued
metformin 500 mg Tablet
500 mg PO BID
Discharge Orders:
Discharge Patient (As Directed); Ordered 04/30/24
Ordered By: Kai Jameson
Discharge Date and Time
Discharge Date/Time: 04/30/24 14:28
Print Language: [id number]
[2024-04-30] MEDS: ATIVAN 1 MG IV (12:48)
[2024-04-30] MEDS: NSS (PRESERVATIVE FREE) 0.5 ML IV (12:49)
[2024-04-30 12:50] LABS: Glucose - Point of Care 118 mg/dl (70-99)
[2024-04-30] MEDS: FLUAD (65 yr+) 2024-2025 FORMULA 0.5 ML IM (12:51)
== END 2024-04-30 14:28 | disposition home or self-care (01) ==
LOC: 4 EAST ACU 23:25
PROVIDERS: Student in an Organized Health Care Education/Training Program; ADMITTING PHYSICIAN Internal Medicine; ATTENDING PHYSICIAN Hospitalist; CONSULT PHYSICIAN Psychiatry & Neurology Psychiatry; EMERGENCY PHYSICIAN Emergency Medicine
DX: T46.5X1A Poisoning by other antihypertensive drugs, accidental (unintentional), initial encounter (principal); T46.6X1A Poisoning by antihyperlipidemic and antiarteriosclerotic drugs, accidental (unintentional), initial encounter; T43.211A Poisoning by selective serotonin and norepinephrine reuptake inhibitors, accidental (unintentional), initial encounter; T38.3X1A Poisoning by insulin and oral hypoglycemic [antidiabetic] drugs, accidental (unintentional), initial encounter; R41.82 Altered mental status, unspecified; Y92.009 Unspecified place in unspecified non-institutional (private) residence as the place of occurrence of the external cause; I10 Essential (primary) hypertension; F03.B3 Unspecified dementia, moderate, with mood disturbance; R41.89 Other symptoms and signs involving cognitive functions and awareness; E78.5 Hyperlipidemia, unspecified; E11.9 Type 2 diabetes mellitus without complications; E03.9 Hypothyroidism, unspecified; G31.9 Degenerative disease of nervous system, unspecified; R11.2 Nausea with vomiting, unspecified; F32.A Depression, unspecified; R00.0 Tachycardia, unspecified; Z75.1 Person awaiting admission to adequate facility elsewhere; Z79.890 Hormone replacement therapy; Z60.2 Problems related to living alone; Z23 Encounter for immunization; Z79.84 Long term (current) use of oral hypoglycemic drugs; Z88.8 Allergy status to other drugs, medicaments and biological substances; Z66 Do not resuscitate
CPT/HCPCS: 70450; 80048; 80053; 80143; 80179; 80306; 81003; 81015; 82306; 82607; 82746; 82962; 83036; 84443; 85025; 85027; 87086; 90662; 93005; 96360; 96361; 97162; 97166; 99284; G0008; G0378